=== PATIENT | female | born 1985 | race Caucasian/White ===

== ENCOUNTER 2017-01-05 22:52 | Emergency (ER) | payer OTHER ==
[~2017-01-05] VITALS: Ht 177.8 cm; Wt 97.7 kg
[2017-01-05 22:59] VITALS: Ht 177.8 cm; Wt 97.7 kg
[2017-01-05] MEDS ORDERED: ALBUTEROL 0.083% (NEB) 2.5 MG/3 ML AMP HHN STA (23:04)
[2017-01-05] MEDS ORDERED: DULO30CA45 PO (23:21)
[2017-01-05] MEDS ORDERED: VENL75TA2 PO (23:23)
[2017-01-05] MEDS ORDERED: PROP10TA6 PO (23:25)
[2017-01-05] MEDS ORDERED: DIAZ2TAB3 PO (23:28)
[2017-01-05] MEDS ORDERED: LISD30CA5 PO (23:29)
[2017-01-05] MEDS ORDERED: IPRATROPIUM (NEB) 0.5 MG/2.5 ML AMP HHN ONE (23:30)
[2017-01-05] MEDS ORDERED: predniSONE 20 MG TAB PO ONE (23:30)
[2017-01-05] MEDS ORDERED: ALBU18HF INHALATION (23:32)
[2017-01-06] MEDS ORDERED: KETOROLAC 60 MG INJ IM STA (00:18)
[2017-01-06] MEDS ORDERED: FLUT12HF IH (00:36)
[2017-01-06] MEDS ORDERED: PRED20TA PO (00:36)
[2017-01-06] MEDS ORDERED: HYDR-906 PO (00:36)
[2017-01-06] MEDS ORDERED: METH500T PO (00:36)
[2017-01-06] MEDS ORDERED: ALBU18HF INHALATION (00:36)
--- NOTE | 2017-01-06 00:41 | ERD ---
ER Documentation Chief Complaint Date/Time DATE: 01/06/17 TIME: 00:38 Chief Complaint severe SOB, hx asthma,c/o chest pressure pain radiating to back HPI 31-year-old female presented for shortness of breath began last night. She has a history of asthma and obstructive used her rescue inhaler but is not working. She has cough which is starting to hurt her ribs when she coughs. She has no other specific chest pain. She denies having any recent fever or chills. ROS All systems reviewed and are negative except as per history of present illness. Medications Home Meds Active Scripts Hydrocodone/Acetaminophen ([place] 5-325 Tablet) 1 Each Tablet, 1 EACH PO Q6, #14 TAB Prov:RAYO OLIVER DO 01/06/17 Methocarbamol* (Robaxin*) 500 Mg Tab, 500 MG PO Q8 for MUSCLE SPASMS, #14 TAB Prov:RAYO OLIVER DO 01/06/17 Prednisone* (Prednisone*) 20 Mg Tab, 40 MG PO DAILY, #6 TAB Prov:RAYO OLIVER DO 01/06/17 Salmeterol Xinaf-Fluticasone* (Advair HFA*) 45/212 Aerosol Inhaler, 2 INH IH BID , #1 INHALER Prov:RAYO OLVIER DO 01/06/17 Albuterol Sulfate* (Ventolin HFA*) 18 Gm Hfa.aer.ad, 2 PUFF INHALATION Q4H, #1 INHALER Prov:RAYO OLIVER DO 01/06/17 Reported Medications Albuterol Sulfate* (Ventolin HFA*) 18 Gm Hfa.aer.ad, 2 PUFF INHALATION Q4H, #1 INHALER 01/05/17 Lisdexamfetamine Dimesylate (Vyvanse) 30 Mg Capsule, 30 MG PO AM, #30 CAP 01/05/17 Diazepam* (Diazepam*) 2 Mg Tablet, 2 MG PO NEEDED, TAB 01/05/17 Propranolol Hcl* (Propranolol Hcl*) 10 Mg Tablet, 10 MG PO PRN, TAB 01/05/17 Venlafaxine Hcl* (Effexor XR*) 75 Mg Tab.er.24, 75 MG PO PRN, TAB.SA 01/05/17 Duloxetine Hcl* (Cymbalta*) 30 Mg Capsule.dr, 30 MG PO DAILY, CAP 01/05/17 Allergies Allergies: Coded Allergies: No Known Allergy (Unverified , 01/05/17) PMhx/Soc Medical and Surgical Hx: pt denies Surgical Hx Hx Respiratory Disorders: Yes (ASTHMA) Hx Miscellaneous Medical Probl: Yes (ANXIETY, MANIC DEPRESSION) Hx Alcohol Use: Yes Hx Substance Use: No Hx Tobacco Use: Yes Smoking Status: Current every day smoker Physical Exam Vitals Vital Signs Date Time Temp Pulse Resp B/P Pulse Ox O2 Delivery O2 Flow Rate FiO2 01/05/17 23:12 104 28 98 Aerosol 8.0 01/05/17 23:03 Venti Mask 8.0 01/05/17 22:59 97.2 111 20 135/98 100 Physical Exam Const: [] Mild distress Eyes: Normal Conjunctiva ENT: Normal External Ears, Nose and Mouth. Neck: Full range of motion..~ No meningismus. Resp: Bilateral expiratory wheezes, mild tachypnea Cardio: Regular mild tachycardia, no murmurs Skin: No petechiae or rashes Ext: No cyanosis, or edema Neur: Awake and alert and oriented 3, no focal deficits Psych: Normal Mood and Affect Results 24 hrs Current Medications Medications (Trade) Dose Ordered Sig/Daryl Route PRN Reason Start Time Stop Time Status Last Admin Dose Admin Albuterol (Proventil 0.083% (Neb)) 10 mg ONCE STAT HHN 01/05/17 23:04 01/05/17 23:06 DC 01/05/17 23:11 Ipratropium [place] (Atrovent 0.02% (Neb)) 1 mg ONCE ONCE HHN 01/05/17 23:30 01/05/17 23:31 DC 01/05/17 23:10 Prednisone (Prednisone) 60 mg ONCE ONCE PO 01/05/17 23:30 01/05/17 23:31 DC 01/05/17 23:16 Ketorolac Tromethamine (Toradol) 60 mg ONCE STAT IM 01/06/17 00:18 01/06/17 00:20 DC 01/06/17 00:33 Procedures/MDM Acute asthma exacerbation. Patient is given albuterol and Atrovent nebulized treatments as well as a prednisone pill. Wheezing and completely resolved by the end of the 10 mg albuterol treatment. Patient was feeling much better. Patient does have residual bilateral rib pain and tenderness. She is given a Toradol 60 mg IM injection which helped relieve the pain. She says that she is to be on a rule medication inhaler as well. I'm going to discharge her with Naresh currently in her follow up with her primary care physician for evaluation of this regimen. Discharging with a few more days of prednisone. Also discharging with Robaxin for muscle relaxation and a few [place] pills for the rib pain. I have very low suspicion for infection or pulmonary mood is him currently. Patient has no risk factors. He Departure Diagnosis: Primary Impression: Asthma attack Condition: Stable Patient Instructions: Asthma, Acute (Adult) Referrals: [facility] YOU HAVE RECEIVED A MEDICAL SCREENING EXAM AND THE RESULTS INDICATE THAT YOU DO NOT HAVE A CONDITION THAT REQUIRES URGENT TREATMENT IN THE EMERGENCY DEPARTMENT. FURTHER EVALUATION AND TREATMENT OF YOUR CONDITION CAN WAIT UNTIL YOU ARE SEEN IN YOUR DOCTORS OFFICE WITHIN THE NEXT 1-2 DAYS. IT IS YOUR RESPONSIBILITY TO MAKE AN APPOINTMENT FOR FOLOW-UP CARE. IF YOU HAVE A PRIMARY DOCTOR --you should call your primary doctor and schedule an appointment IF YOU DO NOT HAVE A PRIMARY DOCTOR YOU CAN CALL OUR PHYSICIAN REFERRAL HOTLINE AT IF YOU CAN NOT AFFORD TO SEE A PHYSICIAN YOU CAN CHOSE FROM THE FOLLOWING [facility] [address] [facility]. [facility] [address] [facility] [facility] [address] [facility] [facility] [address] [facility]. [facility] [address] [facility]. [facility]. [address] Additional Instructions: Call your primary care doctor TOMORROW for an appointment during the next 2-3 days.See the doctor sooner or return here if your condition worsens before your appointment time. RAYO OLIVER DO Jan 06, 2017 00:41
[2017-01-06 01:08] VITALS: BP 122/73; PULSE 96; RESP 24
[2017-01-07] MEDS ORDERED: ALBU8.5H3 INH (15:49)
[2017-01-07] MEDS ORDERED: ALBU2.5V3 NEB (15:49)
[2017-01-07] MEDS ORDERED: PRED20TA PO ×2 (15:51→15:55)
== END 2017-01-06 01:11 | disposition home or self-care (01) ==
LOC: E/R 22:52
DX: J45.901 Unspecified asthma with (acute) exacerbation (principal); F17.210 Nicotine dependence, cigarettes, uncomplicated
CPT/HCPCS: 94644; 96372; J1885; J7512; Z7502; Z7610

== ENCOUNTER 2017-01-07 13:40 | Emergency (ER) | payer OTHER ==
[~2017-01-07] VITALS: Wt 97.0 kg
[~2017-01-07 13:40] MED LIST: ALBU18HF INHALATION; DIAZ2TAB3 PO; DULO30CA45 PO; FLUT12HF IH; HYDR-906 PO; LISD30CA5 PO; METH500T PO; PRED20TA PO; PROP10TA6 PO; VENL75TA2 PO
[2017-01-07] MEDS ORDERED: ALBUTEROL 0.083% (NEB) 2.5 MG/3 ML AMP HHN STA ×2 (14:21→14:39)
--- NOTE | 2017-01-07 14:21 | ERD ---
ER Documentation Chief Complaint Date/Time DATE: 01/07/17 TIME: 14:17 Chief Complaint SOB AND COUGHING FOR THE PAST FEW DAYS NOT BETTER WITH STEROIDS. HPI 31-year-old female who presents to the emergency room for shortness of breath and coughing for about 3 days. Was here to emergency department last Saturday for asthma attack and was treated with prednisone p.o., albuterol and Atrovent breathing treatment. Was discharged with prednisone p.o. Stated that she still have prednisone p.o. for 2 more days. Denies headache, loss of consciousness, dizziness, blurry vision, changes in vision, photophobia, facial pain, ear pain, throat pain, difficulty swallowing, neck pain, shoulder pain, chest pain, hemoptysis, abdominal pain, back pain, loss of appetite, nausea, vomiting, hematochezia, diarrhea, constipation, urinary symptoms, , the possibility of being , bladder and bowel incontinences, extremity weakness, extremity tenderness, numbness or tingling sensation, difficulty walking, recent travel, recent exposure to illness, recent antibiotic use in the last 3 months, fever, chills. Allergy: No known drug allergies. PMH: Asthma, anxiety, depression, ADHD. Family medical history: Diabetes. Denies family history of cardiac before the age of 50. A1 LMP: Stated she has irregular menstrual period. Stated that she has her IUD placed last August 2016. Medications: Prednisone. Vicodin. Buspirone. Vyvanse Surgery: Denies. Primary Social History: Not working at this time. Stated is trying to quit smoking cigarettes. Stated she has not smoked cigarettes in the past 2-3 days. Occasional drinks alcoholic beverages. Denies use of illegal drugs. ROS All systems reviewed and are negative except as per history of present illness. Medications Home Meds Active Scripts Prednisone* (Prednisone*) 20 Mg Tab, 60 MG PO DAILY for 3 Days, TAB Prov:IMELDA JOHNS 01/07/17 Prednisone* (Prednisone*) 20 Mg Tab, 40 MG PO DAILY for 3 Days, TAB Prov:MANDIILAIMELDA ASCENCIO 01/07/17 Prednisone* (Prednisone*) 20 Mg Tab, 20 MG PO DAILY for 3 Days, TAB Prov:IMELDA JOHNS 01/07/17 Albuterol Sulfate* (Proair HFA*) 8.5 Gm Hfa.aer.ad, 2 PUFF INH Q4, #1 INHALER Prov:IMELDA JOHNS 01/07/17 Albuterol Sulfate* (Albuterol Sulfate* Neb) 0.083%-3 Ml Neb, 2.5 MG NEB Q4 Y for SHORTNESS OF BREATH, #30 EA Prov:IMELDA JOHNS 01/07/17 Hydrocodone/Acetaminophen ([place] 5-325 Tablet) 1 Each Tablet, 1 EACH PO Q6, #14 TAB Prov:RAYO OLIVER DO 01/06/17 Methocarbamol* (Robaxin*) 500 Mg Tab, 500 MG PO Q8 for MUSCLE SPASMS, #14 TAB Prov:RAYO OLIVER DO 01/06/17 Prednisone* (Prednisone*) 20 Mg Tab, 40 MG PO DAILY, #6 TAB Prov:RAYO OLIVER DO 01/06/17 Salmeterol Xinaf-Fluticasone* (Advair HFA*) 45/212 Aerosol Inhaler, 2 INH IH BID , #1 INHALER Prov:RAYO OLIVER DO 01/06/17 Albuterol Sulfate* (Ventolin HFA*) 18 Gm Hfa.aer.ad, 2 PUFF INHALATION Q4H, #1 INHALER Prov:RAYO OLIVER DO 01/06/17 Reported Medications Albuterol Sulfate* (Ventolin HFA*) 18 Gm Hfa.aer.ad, 2 PUFF INHALATION Q4H, #1 INHALER 01/05/17 Lisdexamfetamine Dimesylate (Vyvanse) 30 Mg Capsule, 30 MG PO AM, #30 CAP 01/05/17 Diazepam* (Diazepam*) 2 Mg Tablet, 2 MG PO NEEDED, TAB 01/05/17 Propranolol Hcl* (Propranolol Hcl*) 10 Mg Tablet, 10 MG PO PRN, TAB 01/05/17 Venlafaxine Hcl* (Effexor XR*) 75 Mg Tab.er.24, 75 MG PO PRN, TAB.SA 01/05/17 Duloxetine Hcl* (Cymbalta*) 30 Mg Capsule.dr, 30 MG PO DAILY, CAP 01/05/17 Discontinued Scripts Prednisone* (Prednisone*) 20 Mg Tab, 60 MG PO DAILY for 3 Days, #3 TAB Prov:IMELDA JOHNS 01/07/17 Prednisone* (Prednisone*) 20 Mg Tab, 30 MG PO DAILY for 3 Days, #3 TAB Prov:IMELDA JOHNS 01/07/17 Prednisone* (Prednisone*) 20 Mg Tab, 20 MG PO DAILY for 3 Days, #3 TAB Prov:IMELDA JOHNS 01/07/17 Allergies Allergies: Coded Allergies: No Known Allergy (Unverified , 01/05/17) PMhx/Soc Hx Respiratory Disorders: Yes (ASTHMA) Hx Miscellaneous Medical Probl: Yes (ANXIETY, MANIC DEPRESSION) Hx Alcohol Use: Yes Hx Substance Use: No Hx Tobacco Use: Yes Smoking Status: Current every day smoker Physical Exam Vitals Vital Signs Date Time Temp Pulse Resp B/P Pulse Ox O2 Delivery O2 Flow Rate FiO2 01/07/17 14:54 92 21 95 01/07/17 13:50 98.8 92 21 124/74 97 Physical Exam CONSTITUTIONAL: Well-appearing; well-nourished; in no apparent distress. HEAD: Normocephalic; atraumatic. EYES: Conjunctiva clear, sclera non-icteric, EOM intact. PERRL Ears: Hearing intact. EACs clear, TMs non-bulging, non-inflamed, translucent & mobile, ossicles normal appearance, No obstructions, no erythema, no discharges Nose: No obstructions. No polyps. No external lesions. Mucosa non-inflamed. No external lesions, septum and turbinates normal. No rhinorrhea. No discharges. Frontal sinus is non-tender to palpation. Maxillary sinus is non-tender to palpation. MOUTH: Moist mucous membranes, no lesion, no obstructions, no vesicles, no thrush, patent airway Throat: Uvula in midline. Right tonsil is +1 with no erythema, no exudate. Left tonsil is +1 with no erythema, no exudate. Tolerating secretions well. Good gag reflex. Patent airway. Neck: Supple, without lesions, bruits, or adenopathy. No mass. Thyroid non- enlarged and non-tender to palpation. CHEST: Symmetrical chest. No retractions noted. CARDIOVASCULAR: Normal S1, S2. RRR. No murmurs, gallops. RESPIRATORY: Normal chest excursion with respiration; No rhonchi, or rales. Tight wheezing bilaterally. Speaking in clear, full, and complete sentences w/ ease. ABDOMEN: Normal bowel sounds normal. Soft, round, non-distended, non-guarding, no tenderness, no rebound, no organomegaly, no masses, no pulsating abdominal mass. No hernia. No peritoneal signs. : No CVA tenderness. BACK: Symmetrical shoulder. Spine is midline without deformity, tenderness. No evidence of trauma or deformity. PELVIS: Stable pelvis. No evidence of trauma or deformity. MUSCULOSKELETAL: Normal gait and station. No misalignment, asymmetry, crepitation, defects, tenderness, masses, effusions, decreased range of motion, instability, atrophy or abnormal strength or tone in the head, neck, spine, ribs , pelvis or extremities. No calf tenderness. NEUROVASCULAR: Distal pulses are present. Pedal pulse are present, equal, and normal. Capillary refills are < 2 seconds. NEUROLOGIC: Alert and oriented x4. Speaks full and clear sentences. Cranial Nerves II-XII normal. Sensation to pain, touch, and proprioception normal. Grossly unremarkable. No neurologic deficits. Romberg test is negative. PSYCHOLOGICAL: The patients mood and manner are appropriate. No hallucinations , delusions. Not SI. Not HI. Has the capacity to decide for self SKIN: Normal for age and ethnicity; warm; dry; good turgor; no apparent lesions or exudates. No rashes, hives, discoloration. Intact. Results 24 hrs Current Medications Medications (Trade) Dose Ordered Sig/Daryl Route PRN Reason Start Time Stop Time Status Last Admin Dose Admin Albuterol (Proventil 0.083% (Neb)) 5 mg ONCE STAT N 01/07/17 14:21 01/07/17 14:22 DC 01/07/17 14:36 Ipratropium [place] (Atrovent 0.02% (Neb)) 0.5 mg ONCE ONCE HHN 01/07/17 14:30 01/07/17 14:31 DC 01/07/17 14:36 Dexamethasone (Decadron) 10 mg ONCE ONCE IM 01/07/17 14:30 01/07/17 14:31 DC 01/07/17 14:38 Albuterol (Proventil 0.083% (Neb)) 5 mg ONCE STAT N 01/07/17 14:39 01/07/17 14:41 DC 01/07/17 14:54 Procedures/MDM Examination: Please see physical examination. Disease process, medical treatment was explained to the patient and family member. They verbalized understanding and agreed with the diagnostic tests, medical treatment, and follow-up care. Radiology: Chest x-ray. Findings: Cardiovascular: The cardiovascular silhouette appears unremarkable. Lung costello: The lung costello appear clear with no nodule, alveolar infiltrate, or interstitial prominence evident. Pleural spaces: No pneumothorax is identified and no effusion is evident. Osseous structures: The osseous structures appear intact. Soft tissues: The soft tissues appear unremarkable. Impression: Unremarkable chest. Treatment: Decadron IM. Albuterol and Atrovent breathing treatment. For 1 hour. Re-evaluation: Patient speaks full and clear sentences. Tolerating secretions. No difficulty swallowing. No nausea and vomiting. Denies throat pain/throat tightness. Respirations even and unlabored. Lung sounds has improved. Lung sounds are clear to auscultations. States that she feels much better at this time. Consultation: None. Differential diagnosis: Status asthmaticus versus asthma exacerbation versus asthmatic bronchitis versus shortness of breath Medical decision m[age]-year-old female who presents to the emergency room for shortness of breath and coughing for about 3 days. Was here to emergency department last Saturday for asthma attack and was treated with prednisone p.o. , albuterol and Atrovent breathing treatment. Was discharged with prednisone p.o. Stated that she still have prednisone p.o. for 2 more days. Patient's complaint, patient's history about her complaint, my physical findings, diagnostic test results, my re-evaluation are consistent with my final diagnosis of asthma exacerbation. Case was discussed with supervising physician, Dr. Jose E Temple agreed medical decision making. Medications prescribed are the following: Albuterol nebulization. Pro-air MDI. Patient's prednisone 20 mg tablet was changed to 60 mg tablet by mouth 3 days then 40 mg tablet by mouth 3 days then 20 mg tablet by mouth 3 days. Patient and family member are made aware of the side effects and adverse reactions of the medications prescribed. Instructed on when to seek emergent and medical attention in case allergic/anaphylactic reactions or severe side effects and or adverse reactions to medications. Patient and family member verbalized understanding. Patient instructed Instructed to follow-up with his PCP in 24-48 hours. Patient stated that she will follow-up with her primary care provider in the next 24-48 hours. Community resources was also provided. Instructed to Call 911 for chest pain, shortness of breath. Advised to come back here in ED as soon as possible for severity of symptoms which includes but not limited to: any new symptoms; shortness of breath/difficulty of breathing; cardiovascular changes; severe gastrointestinal symptoms; signs and symptoms of bleeding and or infection; signs of compartment syndrome/neurovascular changes; neurological changes/deficits. Patient and family member verbalized understanding. Upon discharge, patient is alert and oriented x 4, speaks full and clear sentences, denies pain, has no neurological deficits, has no neurovascular deficits, difficulty of breathing. Breathing even and unlabored. Lung sounds are clear to auscultation. Not in distress. Oxygen saturation is 98%. Heart rate is regular rate and rhythm. Normal. Appears comfortable. Ambulatory with steady gait. Appears satisfied with care provided here in ED. Departure Diagnosis: Primary Impression: Asthma exacerbation Condition: Good Additional Instructions: Patient instructed Instructed to follow-up with his PCP in 24-48 hours. Patient stated that she will follow-up with her primary care provider in the next 24-48 hours. Community resources was also provided. Instructed to Call 911 for chest pain, shortness of breath. Advised to come back here in ED as soon as possible for severity of symptoms which includes but not limited to: any new symptoms; shortness of breath/difficulty of breathing; cardiovascular changes; severe gastrointestinal symptoms; signs and symptoms of bleeding and or infection; signs of compartment syndrome/neurovascular changes; neurological changes/deficits. Patient and family member verbalized understanding. IMELDA JOHNS Jan 07, 2017 14:20
[2017-01-07] MEDS ORDERED: DEXAMETHASONE 10 MG/ML 1 ML INJ IM ONE (14:30)
[2017-01-07] MEDS ORDERED: IPRATROPIUM (NEB) 0.5 MG/2.5 ML AMP HHN ONE (14:30)
--- NOTE | 2017-01-07 15:12 | RADRPT ---
PROCEDURE: XR Chest PA and Lateral CLINICAL INDICATION: Short of breath TECHNIQUE: PA and Lateral views of the chest were obtained. COMPARISON: None. FINDINGS: Cardiovascular: The cardiovascular silhouette appears unremarkable. Lung Costello: The lung costello appear clear with no nodule, alveolar infiltrate, or interstitial promi nence evident. Pleural Spaces: No pneumothorax is identified and no effusion is evident. Osseous Structures: The osseous structures appear intact. Soft Tissues: The soft tissues appear unremarkable. IMPRESSION: Unremarkable chest. Physician Jaxson Date Time Electronically viewed and signed by Physician Jaxson on 01/07/2017 15:11 /
[2017-01-07] MEDS ORDERED: ALBU8.5H3 INH (15:49)
[2017-01-07] MEDS ORDERED: ALBU2.5V3 NEB (15:49)
[2017-01-07] MEDS ORDERED: PRED20TA PO ×2 (15:51→15:55)
[2017-01-07 16:55] VITALS: BP 135/79; PULSE 100; RESP 20; TEMP 98.8
== END 2017-01-07 16:55 | disposition home or self-care (01) ==
LOC: FTE 13:40
DX: J45.901 Unspecified asthma with (acute) exacerbation (principal); F17.210 Nicotine dependence, cigarettes, uncomplicated
CPT/HCPCS: 71020; 94644; J1100; Z7610; 96372

== ENCOUNTER 2017-02-24 20:55 | Emergency (ER) | payer OTHER ==
[~2017-02-24] VITALS: Ht 177.8 cm; Wt 77.0 kg
[~2017-02-24 20:55] MED LIST changes: +ALBU2.5V3 NEB; +ALBU8.5H3 INH
[2017-02-24 20:57] VITALS: Ht 177.8 cm; Wt 77.0 kg
[2017-02-24] MEDS ORDERED: ALBUTEROL 0.5% (NEB) 2.5 MG/0.5 ML AMP INH STA (21:05)
[2017-02-24] MEDS ORDERED: IPRATROPIUM (NEB) 0.5 MG/2.5 ML AMP INH STA (21:05)
[2017-02-24] MEDS ORDERED: predniSONE 20 MG TAB PO STA (21:05)
[2017-02-24 21:16] VITALS: BP 156/96; PULSE 82; RESP 26; TEMP 98
--- NOTE | 2017-02-24 22:30 | ERD ---
ER Documentation Chief Complaint Date/Time DATE: 02/24/17 TIME: 22:30 Chief Complaint sob, asthma, wheezing unable to speak in full sentences HPI This is a 32-year-old female comes in with acute asthma exacerbation. She said she is wheezing unable to speak in full sentences here in the emergency department. Exacerbation going on for 12-14 hours. No fevers no chills no nausea no vomiting no other current complaints. ROS All systems reviewed and are negative except as per history of present illness. Medications Home Meds Active Scripts Prednisone* (Prednisone*) 20 Mg Tab, 60 MG PO DAILY for 3 Days, TAB Prov:IMELDA JOHNS F 01/07/17 Prednisone* (Prednisone*) 20 Mg Tab, 40 MG PO DAILY for 3 Days, TAB Prov:IMELDA JOHNS F 01/07/17 Prednisone* (Prednisone*) 20 Mg Tab, 20 MG PO DAILY for 3 Days, TAB Prov:IMELDA JOHNS F 01/07/17 Albuterol Sulfate* (Proair HFA*) 8.5 Gm Hfa.aer.ad, 2 PUFF INH Q4, #1 INHALER Prov:IMELDA JOHNS F 01/07/17 Albuterol Sulfate* (Albuterol Sulfate* Neb) 0.083%-3 Ml Neb, 2.5 MG NEB Q4 Y for SHORTNESS OF BREATH, #30 EA Prov:IMELDA JOHNS F 01/07/17 Hydrocodone/Acetaminophen ([place] 5-325 Tablet) 1 Each Tablet, 1 EACH PO Q6, #14 TAB Prov:RAYO OLIVER DO 01/06/17 Methocarbamol* (Robaxin*) 500 Mg Tab, 500 MG PO Q8 for MUSCLE SPASMS, #14 TAB Prov:MELODYRAYO DO 01/06/17 Prednisone* (Prednisone*) 20 Mg Tab, 40 MG PO DAILY, #6 TAB Prov:RAYO OLIVER DO 01/06/17 Salmeterol Xinaf-Fluticasone* (Advair HFA*) 45/212 Aerosol Inhaler, 2 INH IH BID , #1 INHALER Prov:MELODYRAYOEVARISTO VICENTE 01/06/17 Albuterol Sulfate* (Ventolin HFA*) 18 Gm Hfa.aer.ad, 2 PUFF INHALATION Q4H, #1 INHALER Prov:RAYO OLIVER DO 01/06/17 Reported Medications Albuterol Sulfate* (Ventolin HFA*) 18 Gm Hfa.aer.ad, 2 PUFF INHALATION Q4H, #1 INHALER 01/05/17 Lisdexamfetamine Dimesylate (Vyvanse) 30 Mg Capsule, 30 MG PO AM, #30 CAP 01/05/17 Diazepam* (Diazepam*) 2 Mg Tablet, 2 MG PO NEEDED, TAB 01/05/17 Propranolol Hcl* (Propranolol Hcl*) 10 Mg Tablet, 10 MG PO PRN, TAB 01/05/17 Venlafaxine Hcl* (Effexor XR*) 75 Mg Tab.er.24, 75 MG PO PRN, TAB.SA 01/05/17 Duloxetine Hcl* (Cymbalta*) 30 Mg Capsule.dr, 30 MG PO DAILY, CAP 01/05/17 Allergies Allergies: Coded Allergies: No Known Allergy (Unverified , 01/05/17) PMhx/Soc Hx Respiratory Disorders: Yes (ASTHMA) Hx Miscellaneous Medical Probl: Yes (ANXIETY, MANIC DEPRESSION) Hx Alcohol Use: Yes (SOCIALLY) Hx Substance Use: No Hx Tobacco Use: Yes Smoking Status: Current some day smoker Physical Exam Vitals Vital Signs Date Time Temp Pulse Resp B/P Pulse Ox O2 Delivery O2 Flow Rate FiO2 02/24/17 21:23 103 26 98 Nasal Cannula 2.0 02/24/17 21:23 98 2.0 02/24/17 21:16 98.0 82 26 156/96 95 Room Air 02/24/17 21:14 Nasal Cannula 2 02/24/17 20:57 97.4 112 26 156/96 95 Physical Exam Const: [] Head: Atraumatic Eyes: Normal Conjunctiva ENT: Normal External Ears, Nose and Mouth. Neck: Full range of motion..~ No meningismus. Resp: Scattered wheezes bilaterally Cardio: Regular rate and rhythm, no murmurs Abd: Soft, non tender, non distended. Normal bowel sounds Skin: No petechiae or rashes Back: No midline or flank tenderness Ext: No cyanosis, or edema Neur: Awake and alert Psych: Normal Mood and Affect Results 24 hrs Current Medications Medications (Trade) Dose Ordered Sig/Daryl Route PRN Reason Start Time Stop Time Status Last Admin Dose Admin Albuterol (Proventil 0.5% (Neb)) 10 mg ONCE STAT INH 02/24/17 21:05 02/24/17 21:06 DC 02/24/17 21:21 Ipratropium [place] (Atrovent 0.02% (Neb)) 1 mg ONCE STAT INH 02/24/17 21:05 02/24/17 21:06 DC 02/24/17 21:20 Prednisone (Prednisone) 60 mg ONCE STAT PO 02/24/17 21:05 02/24/17 21:06 DC 02/24/17 21:32 Procedures/MDM Medical decision-making: Patient's respiratory status has stabilized while in the department and is appropriate for outpatient work up. Exam and work up not consistent w/ impending respiratory failure or cardiovascular collapse. Departure Diagnosis: Primary Impression: Asthma exacerbation Condition: Stable MASON WILCOX February 24, 2017 22:30
[2017-02-24] MEDS ORDERED: ALBU18HF INHALATION (22:31)
[2017-02-24] MEDS ORDERED: PRED20TA PO (22:31)
[2017-02-24] MEDS ORDERED: ALBU2.5V3 NEB (22:35)
[2017-02-24] MEDS ORDERED: MOME13HF INHALATION (22:35)
== END 2017-02-24 22:00 | disposition home or self-care (01) ==
LOC: E/R 20:55
DX: J45.901 Unspecified asthma with (acute) exacerbation (principal); F17.210 Nicotine dependence, cigarettes, uncomplicated
CPT/HCPCS: 94644; J7512; Z7502; Z7610